=== PATIENT | male | born 1985 | race Caucasian/White ===

== ENCOUNTER 2020-02-12 15:45 | Emergency (ER) | payer MEDICAID, SELFPAY ==
[2020-02-12 15:47] VITALS: BP 144/71; PULSE 87; RESP 18; TEMP 36.9; O2SAT 99; BMI 22.3
[2020-02-12 16:06] VITALS: BMI 22.3
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
--- NOTE | 2020-02-12 16:50 | PC.NURSE ---
Pt states that he is feeling better at this time.
[2020-02-12 17:08] VITALS: BP 144/71; PULSE 87; RESP 18; TEMP 36.9; O2SAT 99
== END 2020-02-12 17:09 | disposition home or self-care (01) ==
PROVIDERS: Emergency Provider Emergency Medicine
DX: G89.18 Other acute postprocedural pain (principal)
CPT/HCPCS: 99281

== ENCOUNTER 2020-02-13 10:43 | Emergency (ER) | payer MEDICAID, SELFPAY ==
[2020-02-13 10:46] VITALS: BP 117/86; PULSE 91; RESP 16; TEMP 36.8; O2SAT 100; BMI 22.3
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
[2020-02-13 11:51] VITALS: BP 117/86; PULSE 91; RESP 16; TEMP 36.8; O2SAT 100
== END 2020-02-13 11:52 | disposition home or self-care (01) ==
PROVIDERS: Emergency Provider Emergency Medicine
DX: G89.18 Other acute postprocedural pain (principal); T07.XXXA Unspecified multiple injuries, initial encounter
CPT/HCPCS: 99281

== ENCOUNTER 2020-02-22 12:05 | Emergency (ER) | payer MEDICAID, SELFPAY ==
[2020-02-22 12:06] VITALS: BP 121/80; PULSE 54; PULSE 97; RESP 16; RESP 20; TEMP 36.8; O2SAT 100; O2SAT 98; BMI 22.3
--- NOTE | 2020-02-22 12:26 | HMH.EDGENADL ---
ED Disposition Clinical Impression: Wound dehiscence Disposition: Home, Self-Care Condition on Discharge: Good Additional Instructions: Clean wound with soap and water daily. Keflex as prescribed. Kaleva as needed for pain. Continue calling [facility] surgery clinic to obtain follow-up. Additional instructions for CONTROLLED SUBSTANCES: You have been prescribed a medication that is a controlled substance. Controlled substances include pain medications known as opiates and sedative nerve medications known as benzodiazepines. Tramadol, fioricet, and gabapentin are also controlled substances. Some common opiates include: Codeine (such as Tylenol #3) Hydrocodone (Vicodin, Lortab, Lorcet, Kaleva) Oxycodone (Percocet, Percodan, Oxycodone, Oxy IR) Some common benzodiazepines include: Diazepam (Valium) Lorazepam (Ativan) Alprazolam (Xanax) Clonazepam (Klonopin) Oxazepam (Serax) All of these controlled substances are highly addictive and frequently abused. Misuse can and frequently does lead to addiction as well as overdose and . Medication should be stored in a locked cabinet or other secure storage unit. Do not store the medication in a motor vehicle. Short term supplies, 3 days or less, are prescribed because of the highly addictive nature of the medication. Any of the controlled substance medication NOT taken should be disposed of properly and NOT SAVED. The recommended method of disposing of unused medications is: Place the medicines in a sealable plastic bag. If the medicine is a solid, crush it or add water to dissolve it. Add something undesirable (cat litter, coffee grounds, etc.) Dispose of sealed bag in household trash Do not flush or pour unused medicines down a sink or drain. Controlled substances should not be shared, given away or sold. Because of the addictive nature and frequent abuse, these medications are sometimes stolen. These medications should be kept in a safe place where they cannot be stolen. Do not keep them in your car or purse. Lost or stolen prescriptions for controlled substances WILL NOT BE REFILLED in this emergency department, regardless of whether a police report was filed. Prescriptions: Oxycodone HCl [Oxycodone 5mg tab (IR)] 5 mg PO Q6HP PRN #6 tab PRN Reason: Moderate To Severe Pain Prescription Printed cephALEXin [Keflex 500mg Cap] 500 mg PO QID #0 cap Prescription Printed Referrals: PCP,No [Primary Care Provider] - - Critical Care Critical Care Time: No Attestation: On , the high probability of a clinically significant, sudden or life threatening deterioration of the following system(s) required my full and direct attention, intervention and personal management. The time I documented below is in addition to time spent performing reported procedures but includes the following listed in this critical care notation. Medical Decision Making - Luiz Inquiry Pt receiving controlled substance: Yes Luiz was queried for this patient: Yes Reference #:: [id number] Risks and benefits of using a controlled substance: were discussed with pt by me Comment: 3 rxs. last rx 18 oxycodone 5mg on 02/13/20. Vital Signs: 02/22/20 12:06 02/22/20 12:36 Temperature 98.3 F Temperature Source Oral Pulse Rate [Radial] 97 H 90 Respiratory Rate 20 18 Blood Pressure [Right Arm] 121/80 136/80 Blood Pressure Mean [Right Arm] 93 98 Blood Pressure Source [Right Arm] Automatic Cuff Automatic Cuff Blood Pressure Position [Right Arm] Sitting Sitting 02 Sat by Pulse Oximetry 100 100 Oxygen Delivery Method Room Air Medical Decision Narrative: After attempts to contact surgeon on-call at the surgery clinic at [facility], no return call received. Patient will be discharged on Keflex and a limited supply of Kaleva and advised to keep trying to reach surgery clinic at [facility] for follow-up. Is reported next appointment is Ciaran
[2020-02-22 12:36] VITALS: BP 136/80; PULSE 90; RESP 18; O2SAT 100
--- NOTE | 2020-02-22 12:57 | PC.NURSE ---
CALLED [facility], WILL RETURN CALL.
--- NOTE | 2020-02-22 13:32 | PC.NURSE ---
Calling [facility] again at this time to see if the pt's provider will be available to speak with Dr Abbasi
[2020-02-22 13:59] VITALS: BP 125/74; PULSE 74; RESP 16; TEMP 36.6; O2SAT 98
== END 2020-02-22 14:01 | disposition home or self-care (01) ==
PROVIDERS: Emergency Provider Emergency Medicine
DX: T81.33XA Disruption of traumatic injury wound repair, initial encounter (principal); V29.9XXD Motorcycle rider (driver) (passenger) injured in unspecified traffic accident, subsequent encounter
CPT/HCPCS: 99282